=== PATIENT | female | born 1940 | race Caucasian/White ===

== ENCOUNTER → 2020-06-09 11:53 | Outpatient (CLI) | payer MEDICARE, SELFPAY ==
--- NOTE | 2020-06-09 11:56 | US_ITS ---
HISTORY: Hypertension, hydronephrosis. 56 images. No comparison imaging. Findings: The right kidney measures 10.4 x 3.3 x 3.6 cm. Right renal cortex is of millimeters thick. Right renal cortex is homo-genius in echotexture and hypoechoic relative to the adjacent liver. Color Doppler imaging demonstrates flow to the right renal parenchyma. No hydronephrosis Exophytic to the right kidney is an anechoic structure measuring 17 x 16 x 8 mm. No flow is demonstrated within this structure. Within the right superior pole parapelvic region there is a 14 x 13 x 15 mm hypoechoic structure with well-defined margins and increased through transmission and no flow on color Doppler imaging. These structures likely represent benign cysts. Within the right kidney there are 2 echogenic structures one measuring 5 mm, the other measuring 6 mm. These are consistent with nonobstructing nephroliths. The left kidney measures 10.5 x 3.6 x 3.8 cm. There is no hydronephrosis. 3 mm echogenic shadowing focus within the right kidney is likely a nonobstructing nephrolith Color Doppler imaging demonstrates flow to left renal parenchyma. Left renal cortex is 7 mm thick. The bladder is decompressed. US/Kidney and Bladder IMPRESSION: Mild symmetric renal cortical thinning. Bilateral nonobstructing stones. No hydronephrosis. at 2112 Reported and signed by: Maxime Ackerman MD Electronically Signed: Maxime Ackerman MD at 21:11 EDT Tel , Service support ,
== END ==
PROVIDERS: PCP Family Medicine; Referring Provider Urology; Visit Provider Urology
DX: N13.30 Unspecified hydronephrosis (principal); R33.9 Retention of urine, unspecified
CPT/HCPCS: 76770

== ENCOUNTER → 2020-07-14 09:53 | Outpatient (CLI) | payer MEDICARE, SELFPAY ==
--- NOTE | 2020-07-14 09:55 | US_ITS ---
STUDY: RENAL ULTRASOUND - COMPLETE REASON FOR EXAM: Female, 79 years old. HYDRONEPHROSIS TECHNIQUE: Ultrasound evaluation of the kidneys was performed with real-time and static medina-scale imaging. COMPARISON: Comparison is made with prior study dated 06/09/2020. FINDINGS: RIGHT KIDNEY: Normal location of the right kidney, which is normal in size. The right kidney measures 10.3 cm x 4.3 cm x 4 cm. There is diffuse thinning of the renal cortex. The renal cortex measures 0.9 cm. There is no right renal mass or cyst. There are 2 tiny nonobstructive right intrarenal calculi. 2 cysts are seen in the right kidney. The larger measures 1.9 cm x 1.3 cm x 0.9 cm. DISTAL RIGHT URETER: There is non-visualization of the distal right ureter. There is no demonstrated right ureterovesical junction calculus. There is a visualized right ureteral jet. LEFT KIDNEY: Normal location of the left kidney, which is normal in size. The left kidney measures 10.3 cm x 3.3 cm x 3.2 cm. There is diffuse thinning of the renal cortex. The renal cortex measures 0.7 cm. There is no left renal mass or cyst. Stable to tiny nonobstructive intrarenal calculi. There is no left hydronephrosis. DISTAL LEFT URETER: There is non-visualization of the distal left ureter. There is no demonstrated left ureterovesical junction calculus. There is a visualized left ureteral jet. BLADDER: The distended urinary bladder has a volume of 20 ml. There is a normal wall thickness of the distended urinary bladder. There is no demonstrated mass within the urinary bladder. There are no demonstrated bladder calculi. US/Kidney and Bladder IMPRESSION: Stable small bilateral intrarenal calculi and renal cysts. No evidence of hydronephrosis. Electronically Signed: Sergo Perez MD at 15:37 EDT , Service support ,
== END ==
PROVIDERS: PCP Family Medicine; Referring Provider Urology; Visit Provider Urology
DX: N13.30 Unspecified hydronephrosis (principal)
CPT/HCPCS: 76770

== ENCOUNTER → 2020-09-24 10:49 | Outpatient (CLI) | payer MEDICARE, SELFPAY ==
[2020-09-20 13:00] VITALS: BMI 25.1
--- NOTE | 2020-09-24 10:49 | MRI_ITS ---
STUDY: MR PELVIS WITH T WITHOUT CONTRAST REASON FOR EXAM: Female, 79 years old. vaginal cancer, eval extent of disease TECHNIQUE: Standardized fat and water weighted pulse sequences were obtained in all 3 orthogonal planes, pre-and post contrast administration. IV dotarem 12ml was administered for the contrast portion of the examination. Limited by motion artifact. COMPARISON: None. FINDINGS: Normal urinary bladder. Normal visualized small intestine. No colon wall thickening. The cecum is positioned in the pelvis. Cecum is mildly fluid distended but no cecal wall thickening There is no pelvic fluid. There is no pelvic mass lesion or lymphadenopathy. Normal visualized pelvic arteries. No bone marrow edema. Normal abdominal wall. No pelvic free fluid. The uterus measures 1.6 x 2.4 x 3.4 cm (atrophic). T1 hypointense mass (with abnormal enhancement) in the vaginal vault is identified with extension into the parametrium (left side). There is also T1 hypointense signal intensity which extends to the left levator sling (image 16 series 9, image 24 series 6). There does NOT appear to be extension into the urinary bladder. There is very little if any fat plane between the rectum and vaginal vault. Hypointense T1 lobular thickening of the left lateral rectal wall (image 28-29 series 6) appears to be contiguous with the vaginal mass. No pelvic adenopathy identified. MRI/Pelvis W/WO Contrast IMPRESSION: 1. Vaginal vault mass extending into the parametrium and left levator sling as well as the left side of the rectum (FIGO T4). No pelvic adenopathy identified. Electronically Signed: Tu Gutierrez MD ([place]) at 18:27 EDT , Service support ,
== END ==
PROVIDERS: PCP Family Medicine; Referring Provider Student in an Organized Health Care Education/Training Program; Visit Provider Student in an Organized Health Care Education/Training Program
DX: C52 Malignant neoplasm of vagina (principal)
CPT/HCPCS: 72197; 77014; 77290; 82565; A9575; Q9967; A4216

== ENCOUNTER 2020-10-06 05:44 | Day surgery (SDC) | payer MEDICARE, SELFPAY ==
[2020-10-01 09:17] VITALS: BMI 26.1
[2020-10-04 10:14] VITALS: BMI 26.4
[2020-10-06] VITALS (8 sets, daily range): BP systolic 124–172; BP diastolic 61–80; PULSE 61–69; RESP 16–18; TEMP 36–36.7; O2SAT 97–99; BMI 27.1
[2020-10-06] MEDS: Lactated Ringers 1,000 ML 100 ML IV (06:15)
--- NOTE | 2020-10-06 07:14 | PCM.HP.BLA ---
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: No Is patient in pain?: No Allergies cefuroxime [From Ceftin] Allergy (Verified 10/01/20 09:21) Hives ibuprofen [From Motrin] Allergy (Verified 10/01/20 09:21) Hives morphine Allergy (Verified 10/01/20 09:21) Other Is last menstrual period known: No Post menopausal: Yes Patient : No PFSH Medical History Anemia Back pain CAD (coronary artery disease) Cervical cancer Coronary artery disease involving coronary bypass graft History of acute myocardial infarction HTN (hypertension) Malignant neoplasm of vagina Osteoarthritis Surgical History History of appendectomy History of back surgery History of bilateral inguinal herniorrhaphies History of cholecystectomy History of heart artery stent History of partial colectomy History of peripheral artery bypass History of reversal of ileostomy Family History Mother CAD (coronary artery disease) Mother Hypertension Brother Myocardial infarction Social History adopted: No household members: none housing: house number of children: 4 current occupational status: retired current occupation: RETIRED current occupational exposures/hazards: No Smoking Status: Former smoker Tobacco: How many years used: 57 how long ago did patient quit smokin YEARS substance use type: does not use HPI HPI HPI: LESLEY KAUFFMAN, is a 79 F who presents to the office today for port placement due to malignant neoplasm of the vagina. Patient also has significant cardiac history and is on aspirin and Plavix. Patient does have some discomfort in her vaginal area otherwise has no other complaints. ROS General General: Yes fatigue; No weight change Musc Musculoskeletal: Yes back problems; No joint pain Cardio Cardiovascular: No chest pain Resp Respiratory: Yes shortness of breath and No cough Exam Const General: cooperative, healthy appearing, comfortable and no acute distress Neck Neck: normal visual inspection and supple Chest Other: Palpation of bilateral upper chest normal Resp Effort & Inspection: normal respiratory effort Cardio Rate: regular rate GI Inspection: non-distended Palpation: soft and nontender Skin General: no rashes or lesions noted Neuro General: patient oriented x3 Psych Affect: normal affect COVID (Procedure Consent) Procedure Criteria Procedure Criteria: Yes Elective The surgeon/proceduralist and patient have discussed in detail the risk of exposure to and/or potential harm posed by the COVID-19 virus with having a surgery/procedure at this time versus the risk of delaying the surgery/procedure. It is not possible to know either the risk of delaying the surgery or procedure or chance of getting an infection with perfect accuracy, but a joint decision was made between the patient and the surgeon/proceduralist to proceed at this time with the scheduled surgery/procedure as indicated on the consent form. Assessment and Plan Assessment and Plan (1) Encounter for insertion of venous access port: Status: Acute (2) Malignant neoplasm of vagina: Status: Acute Plan - Dr. Enid Soni MD: I have discussed above with the patient- Port-a-Cath placement. Right possible left, looking at scheduling next Sunday or . Patient has been counseled as to the risks/benefits of the procedure. I have explained the risks of the surgery, including but not limited to: infection, bleeding, injury to any blood vessels/nerves, injury to lungs (such as pneumothorax or hemothorax and need for chest tube), not having any access, nonfunctioning of port due to thrombosis, infection of port, etc. the patient understands and agrees to proceed. I have answered all the patient's questions to the patient?s satisfaction and the patient has no further questions. Enid Soni M.D. Pager: [phone] [facility] [address] [place] [address], [address] [place] [address] Office: [phone] Coding Level of Care Code Off vis,new,level 3 Diagnoses Encounter for insertion of venous access port Z45.2 Malignant neoplasm of vagina C52 10/01/20 0935<Electronically signed by Enid Soni MD>Date [facility]
[2020-10-06] MEDS: Lidocaine 1% /Epi 1:100 (20ml) 20 ML Vial (07:48)
[2020-10-06] MEDS: Bupivacaine Mpf 0.5% 30 ML VIAL (07:49)
--- NOTE | 2020-10-06 08:01 | PCM.OPRPT ---
Report of Operation Date of Procedure: 10/06/20 Pre-Operative Diagnosis: Z 45.2, malignant neoplasm of vagina Post-Operative Diagnosis: Same Surgery/Procedure Performed:: 1. Placement of right IJ Port-A-Cath 2. Use of ultrasound 3. Use of fluoroscopy Surgeon: Enid Soni Type of Anesthesia: Local MAC Anesthesiologist: Emiliano Ochoa Special Medications: Clindamycin 900 mg IV x1 Estimated Blood Loss (mL): < 10 cc Fluids Replaced: Per anesthesia Description of Procedure: After informed consent was given, the patient was brought to the operating room and placed in the supine position. Appropriate time out protocol was followed. Patient was then given IV conscious sedation for anesthesia. The patient's right upper chest and neck were then prepped with a surgical skin preparation and sterile surgical drapes were placed. After proper landmarks were ascertained, the skin at the upper right chest area was then infiltrated with 1:1 mixture of 1% lidocaine with epinephrine and 0.5% marcaine. A needle trocar was then inserted into the right internal jugular vein with ultrasound guidance-multiple vessels were viewed with u/s and the right IJ was chosen-- and there was good aspiration of venous blood. A wire was then threaded into the needle trocar and this was visualized under fluoroscopy to ensure that the wire was in the superior vena cava. Once this was done, then the needle trocar was removed. A small skin gracie was made with an 11 blade knife at the wire entrance site. The dilator with the introducer sheath attached was then placed over the wire into the right internal jugular vein via the Seldinger technique and this was visualized under fluoroscopy. The dilator and sheath were in proper position as visualized by fluoroscopy. A subcutaneous pocket was then created caudad to the catheter insertion site. A transverse skin incision was made after the skin and subcutaneous tissues were infiltrated with local anesthetic. Blunt dissection was then used to create a space large enough for placement of the subcutaneous port. The catheter was then tunneled into the subcutaneous pocket. The wire and dilator were then removed. The catheter was then threaded into the introducer sheath and was positioned with its tip at the junction of the superior vena cava and the right atrium as visualized under fluoroscopy. The excess catheter was transected. The catheter was then attached to the subcutaneous port using manufacturers guidelines. The catheter was flushed with a heparin saline mixture prior to placement. Hemostasis was carefully controlled with electrocautery. The port was sutured to the subcutaneous fascia using 2-0 Vicryl suture at two sites. The port was then placed in the subcutaneous pocket. The incision were reapproximated with interrupted subdermal 3-0 vicryl sutures. The skin was reapproximated with 3-0 nylon suture in a interrupted fashion. Steristrips were used for reinforcement of the skin closure at IJ insertion site and a sterile opsite dressings were applied. The patient tolerated the procedure well. Implants Used: Bard PowerPort isp M.R.I. 6Fr Lot [id number] [id number] Grafts/Implants Used: [employer] PowerPort isp M.R.I. 6Fr Lot [id number] [id number] Complications none
--- NOTE | 2020-10-06 08:04 | EX.PCM.DISCH ---
Discharge Instructions Procedure Port-A-Cath Diet Discharge Diet: Light diet - advance as tolerated Activity May shower in (days): 5 (Keep port site clean and dry x5 days. Neck incision okay to get wet after 1 day. Okay to lower shower and upper sponge bath. OR okay to taper off port site with a Ziploc bag to shower) Lifting Restrictions: No lifting > 15 pounds for 3 days with the arm on the side of the port Dressing / Incision Call your doctor if your incision/area has: Continuous Slow Oozing, Sudden Increased Bleeding, Increased Pain/ Swelling, Increased Redness, Foul Smelling Discharge and Swelling at the incision site Call your doctor if you observe: Fever of 101 or Higher Change Dressing in: 2 days Follow Up Care Please Follow Up With: Enid Soni MD When: In 10 days for permanent suture removal?call office for appointment Test Results: Test results from this visit will be discussed in further detail at your follow-up appointment, if applicable. Discharge Plan Admission Attending Provider: Enid Soni Primary Care Provider: Brenna Gabriel Discharge Orders/Prescriptions Prescriptions: Continued aspirin 81 mg tablet,delayed release (DR/EC) 81 mg PO DAILY RF: 0 clopidogrel [Plavix] 75 mg tablet 75 mg PO DAILY RF: 0 docusate sodium [Colace] 100 mg capsule 100 mg PO DAILY RF: 0 furosemide [Lasix] 20 mg tablet 20 mg PO Q OTHER DAY RF: 0 gabapentin 800 mg tablet 800 mg PO BID RF: 0 Atrovent HFA 17 mcg/actuation HFA aerosol inhaler 2 puff inhalation Q8H RF: 0 ipratropium-albuterol 0.5 mg-3 mg(2.5 mg base)/3 mL solution for nebulization 3 ml inhalation Q6H PRN (Reason: breathing) RF: 0 isosorbide mononitrate 30 mg tablet extended release 24 hr 30 mg PO DAILY RF: 0 Linzess 72 mcg capsule 72 mcg PO DAILY RF: 0 lisinopril 2.5 mg tablet 2.5 mg PO DAILY RF: 0 magnesium 30 mg tablet 30 mg PO DAILY RF: 0 metaxalone [Skelaxin] 800 mg tablet 800 mg PO TID RF: 0 metoprolol tartrate [Lopressor] 50 mg tablet 50 mg PO BID RF: 0 polyethylene glycol 3350 [Miralax] 17 gram/dose powder 17 g PO DAILY RF: 0 oxycodone-acetaminophen 5-325 mg tablet 1 tab PO TID PRN (Reason: Pain) RF: 0 pantoprazole [Protonix] [address] for susp in packet 40 mg PO DAILY RF: 0 simvastatin [Zocor] 40 mg tablet 40 mg PO QHS RF: 0 multivit,tx w/iron (hematinic) 27-0.8 mg tablet 1 tab PO DAILY RF: 0 diphenhydramine HCl [Unisom SleepGels] 50 mg capsule 50 mg PO QHS RF: 0 prochlorperazine maleate 10 mg tablet 10 mg PO Q6H PRN (Reason: nausea and vomiting) Qty: 30 RF: 2 ondansetron 8 mg tablet,disintegrating 8 mg PO Q8H PRN (Reason: nausea and vomiting) Qty: 30 RF: 2 lidocaine-prilocaine 2.5-2.5 % cream 1 applic topical ONCE PRN (Reason: Port access) 30 Days Qty: 30 RF: 2 Referrals / Follow Up: Brenna Gabriel DO [Primary Care Provider] - Disposition Disposition (needs filled in before D/C Order can be placed): Home, Self Care
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
== END 2020-10-06 09:25 | disposition home or self-care (01) ==
LOC: SDC 05:45 → AC 05:46
PROVIDERS: PCP Family Medicine; Referring Provider Surgery; Visit Provider Surgery
PROC: (CPT 36561; principal; 2020-10-06 07:15)
DX: C52 Malignant neoplasm of vagina (principal); Z45.2 Encounter for adjustment and management of vascular access device; D64.9 Anemia, unspecified; I25.10 Atherosclerotic heart disease of native coronary artery without angina pectoris; I11.0 Hypertensive heart disease with heart failure; M19.90 Unspecified osteoarthritis, unspecified site; Z87.891 Personal history of nicotine dependence; Z79.02 Long term (current) use of antithrombotics/antiplatelets; Z79.899 Other long term (current) drug therapy
CPT/HCPCS: 36561; 71045; 77001; 77386; 87426; C9803; J7120

== ENCOUNTER → 2020-11-03 08:08 | Outpatient (CLI) | payer MEDICARE, SELFPAY ==
--- NOTE | 2020-11-03 08:09 | MRI_ITS ---
STUDY: MR PELVIS WITH T WITHOUT CONTRAST REASON FOR EXAM: 79-year-old female with right vaginalcancer, evaluate extent of disease for brachytherapy planning. TECHNIQUE: Standardized fat and water weighted pulse sequences were obtained in all 3 orthogonal planes, pre-and post contrast administration. 13 ml of Dotarem was administered for the contrast portion of the examination. COMPARISON: 09/24/2020. FINDINGS: The uterus is atrophic and is visualized deviated to the left lateral pelvis, fluid is visualized within the endometrial cavity, the endometrial stripe measures 0.4 cm of the level of the fundus and 0.4 cm in the lower uterine segment, no evidence of endometrial masses or cysts visualized, seen on sagittal series 3 image 10. Multiple simple cysts visualized within the cervix consistent with nabothian cysts seen on sagittal series 3 image 12. In comparison to the prior study coronal series 9 image 16 the soft tissue density visualized in the pelvis inferior to the urinary bladder is again visualized on the current study coronal series 32 image 14 and is seen demonstrating heterogeneous enhancement after contrast administration. A clear demarcation plane of adipose tissue is visualized between 8 and the urinary bladder is visualized on coronal series 8 images 12 to 19. The rectum and rectosigmoid are visualized best on axial series 4 and are seen from image 27 inferiorly to image 3 superiorly, irregular thickening and enhancement in the lateral wall of the rectum is visualized on series 5 image 24 with subtle ill-defined demarcation between the left anterolateral rectal wall and the vaginal soft tissues however this does not demonstrate progression in comparison to the prior study. Otherwise the rectum demonstrates unremarkable contours and unremarkable signal intensity within the adnexa muscularis propria, submucosal and mucosal is no evidence of masses. Mild stranding of the mesorectal fascia but no evidence of lymph nodes or masses visualized. Mild trabeculation visualized in the wall of the urinary bladder with mild wall thickening but no evidence of a bladder wall mass is seen. No evidence of masses within the urinary bladder. There is no pelvic fluid. There is no pelvic lymphadenopathy. Normal osseous structures. Normal abdominal wall. MRI/Pelvis W/WO Contrast IMPRESSION: Thickening of the wall of the rectum and enhancement visualized most prominent along the left lateral wall at the level of the vaginal soft tissue changes, this demonstrates no significant progression in comparison to the prior study. No evidence of adjacent lymphadenopathy is seen. No evidence of new pelvic masses is seen. Electronically Signed: Fred Silveira MD at 12:55 EDT Tel , Service support ,
[2020-11-03] MEDS: 0.9% Saline Lock 10 ML Syringe IV (09:30)
== END ==
PROVIDERS: PCP Family Medicine; Referring Provider Student in an Organized Health Care Education/Training Program; Visit Provider Student in an Organized Health Care Education/Training Program
DX: C52 Malignant neoplasm of vagina (principal)
CPT/HCPCS: 72197; A9575; A4216

== ENCOUNTER 2020-11-10 15:32 | Emergency (ER) | payer MEDICARE, SELFPAY ==
[2020-11-10 15:32] VITALS: BP 196/102; PULSE 88; RESP 17; TEMP 36.1; O2SAT 97; BMI 27.0
--- NOTE | 2020-11-10 16:37 | CT_ITS ---
EXAMINATION : Head CT w/out contrast HISTORY : headache COMPARISON : None. TECHNIQUE : Multiple contiguous axial images were obtained from the skull base to the vertex without intravenous contrast. A radiation dose optimization technique was used for this scan. FINDINGS : There is no evidence for acute intracranial hemorrhage, mass effect, or midline shift. There is no extra-axial fluid collection. There are periventricular white matter changes consistent with chronic microvascular ischemic disease. There is sulcal widening and ventricular enlargement consistent with cerebral atrophy. There is normal medina-white differentiation, without CT evidence of acute ischemia or infarct. The skull base and calvarium are unremarkable. The orbits are unremarkable. The paranasal sinuses are clear. The mastoid air cells are well-aerated. The soft tissues are unremarkable. CT/Brain/Head without Contrast IMPRESSION: No acute intracranial abnormality. Chronic involutional and ischemic changes of the brain. Electronically Signed: Jaiden Garcia MD at 18:07 EDT Tel , Service support ,
--- NOTE | 2020-11-10 16:39 | EDS_ITS ---
HPI History of Present Illness Chief Complaint: Hypertension Detail of Chief Complaint: Elevated blood pressure today Informant: patient and family Narrative Narrative: Patient presents to the emergency department at the request of her radiation oncologist Dr. Wick whom she was seen in the office today. Patient was noted to have elevated blood pressure of 224/119. 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 Patient's blood pressure has been trending up lately and her primary care physician was contacted yesterday who recommended that she increase her metoprolol to 50 mg twice a day from once a day however she did not take the extra dose today. Patient does complain of a headache that she is developed today that came on somewhat suddenly. She denies nausea or vomiting or recent illness otherwise. She denies any chest pain or shortness of breath. Patient also takes lisinopril. Prior similar symptoms: Yes PFSH [facility] Medical History (Updated 11/10/20 @ 19:[address] Elvin Hernandez, DO) Anemia Back pain Cancer Cardiology follow-up encounter Cervical cancer Chronic constipation Coronary artery disease involving coronary bypass graft Diarrhea due to drug Difficulty chewing Easy bruising Encounter for chemotherapy management Encounter for chemotherapy management Excessive bleeding Former smoker Gastric reflux High cholesterol History of acute myocardial infarction History of Clostridium difficile infection History of echocardiogram History of heart attack History of stress test History of ulceration HTN (hypertension) Malignant neoplasm of vagina Osteoarthritis Pancytopenia due to antineoplastic chemotherapy Shortness of breath on exertion Uses wheelchair Vocal cord paralysis Wears dentures Wears glasses Wears hearing aid Home Medications aspirin 81 mg tablet,delayed release 81 mg PO DAILY 09/20/20 [History Last Taken 10/05/20 08:00] clopidogrel 75 mg tablet 75 mg PO DAILY 09/20/20 [History Last Taken 10/05/20 08:00] diphenhydramine HCl 50 mg capsule 50 mg PO QHS 09/20/20 [History Last Taken 10/05/20 08:00] docusate sodium 100 mg capsule 100 mg PO DAILY 09/20/20 [History Last Taken 10/05/20 08:00] furosemide 20 mg tablet 20 mg PO Q OTHER DAY 09/20/20 [History Last Taken 10/05/20 08:00] gabapentin 800 mg tablet 800 mg PO BID 09/20/20 [History Last Taken 10/05/20 08:00] ipratropium 0.5 mg-albuterol 3 mg (2.5 mg base)/3 mL nebulization soln 3 ml INHALATION Q6H PRN 09/20/20 [History Last Taken 10/05/20 08:00] ipratropium bromide 17 mcg/actuation HFA aerosol inhaler 2 puff INHALATION Q8H 09/20/20 [History Last Taken 10/05/20 08:00] isosorbide mononitrate 30 mg tablet,extended release 24 hr 30 mg PO DAILY 09/20/20 [History Last Taken 10/06/20 04:30] linaclotide 72 mcg capsule 72 mcg PO DAILY 09/20/20 [History Last Taken 10/05/20 08:00] lisinopril 2.5 mg tablet 2.5 mg PO DAILY 09/20/20 [History Last Taken 10/06/20 04:30] magnesium 30 mg tablet 30 mg PO DAILY 09/20/20 [History Last Taken 10/05/20 08:00] metaxalone 800 mg tablet 800 mg PO TID 09/20/20 [History Last Taken 10/05/20 08:00] metoprolol tartrate 50 mg tablet 50 mg PO BID 09/20/20 [History Last Taken 10/06/20 04:30] multivit,tx w/iron (hematinic) 27 mg-0.8 mg tablet 1 tab PO DAILY 09/20/20 [History Last Taken 10/05/20 08:00] oxycodone-acetaminophen 5 mg-325 mg tablet 1 tab PO TID PRN 09/20/20 [History Last Taken 10/05/20 08:00] pantoprazole 40 mg granules delayed-release for susp in packet 40 mg PO DAILY 09/20/20 [History Last Taken 10/05/20 08:00] polyethylene glycol 3350 17 gram/dose oral powder 17 g PO DAILY 09/20/20 [History Last Taken 10/05/20 08:00] simvastatin 40 mg tablet 40 mg PO QHS 09/20/20 [History Last Taken 10/05/20 08:00] lidocaine-prilocaine 2.5 %-2.5 % topical cream 1 applic TOPICAL ONCE PRN 30 Days #30 g 10/04/20 [Rx Last Taken 10/05/20 08:00] ondansetron 8 mg disintegrating tablet 8 mg PO Q8H PRN #30 tab 10/04/20 [Rx Last Taken 10/05/20 08:00] prochlorperazine maleate 10 mg tablet 10 mg PO Q6H PRN #30 tab 10/04/20 [Rx Last Taken 10/05/20 08:00] Allergy/AdvReac Type Severity Reaction Status Date / Time cefuroxime [From Ceftin] Allergy Hives Verified 11/10/20 14:21 ibuprofen [From Motrin] Allergy Hives Verified 11/10/20 14:21 morphine Allergy Other Verified 11/10/20 14:21 Family History Mother CAD (coronary artery disease) Mother Hypertension Brother Myocardial infarction Surgical History History of appendectomy History of back surgery History of bilateral inguinal herniorrhaphies History of cholecystectomy History of heart artery stent History of partial colectomy History of peripheral artery bypass History of reversal of ileostomy Social History adopted: No household members: none housing: house number of children: 4 current occupational status: retired current occupation: RETIRED current occupational exposures/hazards: No Smoking Status: Former smoker Tobacco: How many years used: 57 how long ago did patient quit smokin YEARS substance use type: does not use ROS ROS ED Constitutional Constitutional ED: Reports systems reviewed and no addt'l complaints, except as documented; Denies body ache(s), change in weight or chills Eyes Eyes: Denies acute decrease in peripheral vision, change in vision, double vision or loss of vision ENT ENT ED: Reports none; Denies ear pain, lip swelling, loss taste/smell, neck pain, otalgia or sore throat Cardiovascular Cardiovascular: Reports none; Denies abdominal pain, chest pain with activity, leg edema, lightheadedness, palpitations, rapid heart rate or syncope Respiratory/Chest Respiratory/Chest: Reports none; Denies change in mental status, dry cough, dyspnea, hemoptysis, shortness of breath at rest or shortness of breath with exertion Gastrointestinal Gastrointestinal: Reports none; Denies abdominal pain, change in stool character, diarrhea, hematemesis, hematochezia, melena, rectal bleeding or vomiting Genitourinary Genitourinary ED: Reports none; Denies abdominal discomfort, anuria, dysuria, genital pain or polyuria Musculoskeletal Musculoskeletal: Reports none; Denies arthralgias, back pain, difficulty walking, extremity pain, muscle weakness or myalgias Integumentary Reports none; Denies abscess or rash Neurologic Neurologic: Reports none and headache(s); Denies abnormal gait, confusion, focal weakness, frequent falls, loss of vision, numbness, paresthesias, radicular pain, vertigo or weakness Psychiatric Psychiatric: Reports systems reviewed and no addt'l complaints, except as documented and none; Denies behavioral changes, confusion, difficulty concentrating, hallucinations, suicidal ideation, tactile hallucinations or visual hallucinations Endocrine Endocrinology: Denies none, cold intolerance, excessive sweating, fatigue or heat intolerance Hematologic/Lymphatic Hematologic/Lymphatic: Reports none; Denies anemia, easy bleeding or easy bruising Allergic/Immunologic Allergic/Immunologic ED: Denies as per HPI, none, lip swelling, mouth swelling, throat swelling, tongue swelling or hives EXAM Physical Exam Const Vital Signs: 11/10/20 15:32 11/10/20 16:34 11/10/20 17:29 Temperature 97 F L Temperature Source Temporal Pulse Rate 88 Respiratory Rate 17 Respiratory Effort Normal Non-Labored Blood Pressure 196/102 H 171/89 H Blood Pressure Mean 133 116 Pulse Ox 97 Oxygen Delivery Method Room Air 11/10/20 19:00 Temperature Temperature Source Pulse Rate 87 Respiratory Rate 17 Respiratory Effort Blood Pressure 198/97 H Blood Pressure Mean 130 Pulse Ox 98 Oxygen Delivery Method Room Air Positive well nourished and well developed General Appearance ED: well developed and NAD HEENT Reports TM's clear and moist mucous membranes normocephalic and atraumatic; Negative for trauma or tenderness Tympanic Membrane ED: Yes TM's clear Eyes PERRL and EOMs intact bilaterally General Eye ED: Negative for pale conjunctiva or scleral icterus Neck no lymphadenopathy, supple and no JVD General: Negative for tenderness Chest Wall inspection of chest normal and palpation of chest normal Chest: Negative for tenderness Resp normal respiratory effort and clear to auscultation bilaterally Effort and Inspection: Negative for respiratory distress or pain with movement Auscultation: Negative for rhonchi, wheezes or diminished lung sounds Cardio regular rate, regular rhythm, S1 normal heart sound, S2 normal heart sound and no murmurs Peripheral Pulses: pulses 2+ throughout GI normal to inspection, nondistended, normoactive bowel sounds, soft to palpation, non-tender, non-distended and no masses Back/Spine no CVA tenderness and no thoracic nor lumbar tenderness Extremity normal to inspection General Extremety ED: Negative for edema General Extremity: Negative for edema Neuro oriented x3, CN's II-XII intact bilaterally, no sensory deficits noted and gait normal Sensorium / Orientation: awake, alert, oriented to person, oriented to place and oriented to time Motor Exam: strength 5/5 throughout and strength abnormal Psych mental status grossly normal Skin no rashes or lesions noted and no wounds MDM MDM MDM Narrative Medical decision making narrative: Patient placed on a cardiac rn on arrival. Patient was given metoprolol 50 mg p.o. She was observed on monitors and she continues to have elevated blood pressure of 190s over 90s diastolic. Patient has a just a minimal headache and she states that she used to frequently get migraines. She does not anything for headache. Patient would like to go home and just relax. At this point I do not feel there is anything emergent regarding her blood pressure. She is to continue with her new blood pressure medicine regimen and keep track of her blood pressures at home. She will follow-up with her primary care physician in 3 to 5 days. Lab Data Attestation: I reviewed the patient's lab results. Labs: Laboratory Results - last 24 hr 11/10/20 11/10/20 11/10/20 17:10 17:10 17:10 WBC 2.5 L RBC 3.59 L Hgb 9.9 L Hct 29.7 L MCV 82.7 MCH 27.6 MCHC 33.3 RDW Std Deviation 56.9 H RDW Coeff of Howard 19.3 H Plt Count 41 L* MPV 10.7 Immature Gran % (Auto) 0.800 Neut % (Auto) 62.5 Lymph % (Auto) 23.3 [place] % (Auto) 12.6 H Eos % (Auto) 0.4 Baso % (Auto) 0.4 Absolute Neuts (auto) 1.6 L Absolute Lymphs (auto) 0.59 L Nucleated RBC % 0 Differential Comment SCANNED Diff Path Review May foll Platelet Estimate MKD DEC Anisocytosis 3+ Ovalocytes RARE Sodium 135 L Potassium 4.1 Chloride 102 Carbon Dioxide 25.0 Anion Gap 8 BUN 11 Creatinine 0.61 Estim Creat Clear Calc 32.73 Est GFR (MDRD) Af Amer 121 Est GFR (MDRD) Non-Af 100 BUN/Creatinine Ratio 18.0 Glucose 90 Calcium 8.6 Troponin I High Sens 24 Urine Color Straw Urine Clarity Clear Urine pH 7.0 Ur Specific [place] 1.005 Urine Protein Negative Urine Glucose (UA) Normal Urine Ketones Negative Urine Occult Blood 50 H Urine Nitrite Negative Urine Bilirubin Negative Urine Urobilinogen Normal Ur Leukocyte Esterase 100 H Urine RBC 0 SEEN Urine WBC 0 SEEN Ur Squamous Epith Cells 0 SEEN Urine Bacteria 0 SEEN Urine Mucus 0 SEEN Radiography Diagnostic Testing: Radiology Impression Brain CT 11/10/20 16:37 IMPRESSION: No acute intracranial abnormality. Chronic involutional and ischemic changes of the brain. Electronically Signed: Jaiden Garcia MD at 18:07 EDT Tel , Service support , Chest X-Ray 11/10/20 17:20 IMPRESSION: No acute radiographic abnormalities. 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 Discharge Plan Triage Chief Complaint: Hypertension ED Provider: Elvin Hernandez Dx/Rx/DC Orders Clinical Impression: Hypertension Instructions: ED High Blood Pressure Hypertension Prescriptions: No Action aspirin 81 mg tablet,delayed release (DR/EC) 81 mg PO DAILY RF: 0 clopidogrel [Plavix] 75 mg tablet 75 mg PO DAILY RF: 0 docusate sodium [Colace] 100 mg capsule 100 mg PO DAILY RF: 0 furosemide [Lasix] 20 mg tablet 20 mg PO Q OTHER DAY RF: 0 gabapentin 800 mg tablet 800 mg PO BID RF: 0 Atrovent HFA 17 mcg/actuation HFA aerosol inhaler 2 puff inhalation Q8H RF: 0 ipratropium-albuterol 0.5 mg-3 mg(2.5 mg base)/3 mL solution for nebulization 3 ml inhalation Q6H PRN (Reason: breathing) RF: 0 isosorbide mononitrate 30 mg tablet extended release 24 hr 30 mg PO DAILY RF: 0 Linzess 72 mcg capsule 72 mcg PO DAILY RF: 0 lisinopril 2.5 mg tablet 2.5 mg PO DAILY RF: 0 magnesium 30 mg tablet 30 mg PO DAILY RF: 0 metaxalone [Skelaxin] 800 mg tablet 800 mg PO TID RF: 0 metoprolol tartrate [Lopressor] 50 mg tablet 50 mg PO BID RF: 0 polyethylene glycol 3350 [Miralax] 17 gram/dose powder 17 g PO DAILY RF: 0 oxycodone-acetaminophen 5-325 mg tablet 1 tab PO TID PRN (Reason: Pain) RF: 0 pantoprazole [Protonix] [address] for susp in packet 40 mg PO DAILY RF: 0 simvastatin [Zocor] 40 mg tablet 40 mg PO QHS RF: 0 multivit,tx w/iron (hematinic) 27-0.8 mg tablet 1 tab PO DAILY RF: 0 diphenhydramine HCl [Unisom SleepGels] 50 mg capsule 50 mg PO QHS RF: 0 prochlorperazine maleate 10 mg tablet 10 mg PO Q6H PRN (Reason: nausea and vomiting) Qty: 30 RF: 2 ondansetron 8 mg tablet,disintegrating 8 mg PO Q8H PRN (Reason: nausea and vomiting) Qty: 30 RF: 2 lidocaine-prilocaine 2.5-2.5 % cream 1 applic topical ONCE PRN (Reason: Port access) 30 Days Qty: 30 RF: 2 Primary Care Provider: Brenna Gabriel Referrals: Brenna Gabriel DO [Primary Care Provider] - 3-5 Days Disposition Disposition: Home, Self Care
[2020-11-10] MEDS: 0.9% Normal Saline 1,000 ML 15 ML IV (17:09)
[2020-11-10 17:18] LABS: Bacteria 0 SEEN /hpf (None Seen); Mucous, Urine 0 SEEN /hpf (<or=2+); Red Blood Cells-Urine 0 SEEN /hpf (0-5); Squamous Epithelial Cells - UA 0 SEEN /hpf (5-10); White Blood Cells 0 SEEN /hpf (0-5)
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
--- NOTE | 2020-11-10 17:21 | ED.RN ---
THIS RN [facility]
[2020-11-10 17:24] LABS: Absolute Lymphocyte Count 0.59 X10^3/uL (0.83-4.51); Absolute Neutrophil Count 1.6 X10^3/uL (2.0-7.7); Basophil# 0.01 X10^3/uL; Basophil% 0.4 % (0-1); Eosinophil# 0.01 X10^3/uL; Eosinophils% 0.4 % (0-5); Hematocrit 29.7 % (37-47); Hemoglobin 9.9 g/dL (12.0-15.0); Lymphocyte # 0.59 X10^3/ul (0.83-4.51); Lymphocyte % 23.3 % (19-41); Mean Corp Hgb Conc 33.3 g/dL (32-36); Mean Corpuscular Hgb 27.6 pg (27.0-32.0); Mean Corpuscular Volume 82.7 fL (81-99); Mean Platelet Vol. 10.7 fl (6.2-12.0); Monocyte# 0.32 X10^3/uL; Monocyte% 12.6 % (0-10); NRBC Flagged by Analyzer 0 % (0-5); Neutrophil # 1.58 X10^3/uL (2.7-7.7); Neutrophil % 62.5 % (47-70); POSITIVE COUNT YES; POSITIVE DIFFERENTIAL YES; RBC Distribution Width CV 19.3 % (11.6-14.6); RBC Distribution Width SD 56.9 fl (35.1-43.9); Red Blood Count 3.59 M/mm3 (4.2-5.4); White Blood Count 2.5 K/mm3 (4.4-11.0)
[2020-11-10 17:29] VITALS: BP 171/89
[2020-11-10 17:41] LABS: Color, Urine Straw (Yellow); Glucose, Dipstick Normal (Normal); Ketone-Dipstick Negative (Negative); Leukocyte Esterase-Dipstick 100 /ul (Negative); Nitrite-Dipstick Negative (Negative); Occult Blood-Urine 50 /ul (Negative); Protein-Dipstick Negative (Negative); Specific Gravity, Urine 1.005 (1.002-1.030); Urine Bilirubin Dipstick Negative (Negative); Urine Clarity Clear (Clear); Urine Urobilinogen Normal (Normal)
[2020-11-10 17:49] LABS: Differential Indicated SCAN CRITERIA MET; Platelet Count 41 K/mm3 (150-450)
[2020-11-10 17:53] LABS: Anion Gap 8 (5-15); BUN 11 mg/dL (7-18); Calcium,Total 8.6 mg/dL (8.5-10.1); Chloride 102 mmol/L (98-107); Creatinine, Serum 0.61 mg/dL (0.55-1.02); EST Glomerular Filtration Rate 100 mL/min (>60); Est Glom Filt Rate - Afr Amer 121 mL/min (>60); Estimated Creatinine Clearance 32.73 ml/min; Glucose 90 mg/dL (74-106); Potassium 4.1 mmol/L (3.5-5.1); Sodium Level 135 mmol/L (136-145); Troponin-I HS 24 pg/mL (3.0-54.0)
[2020-11-10] MEDS: Metoprolol(XL)Succ 50 MG Tablet PO (18:10)
[2020-11-10 18:26] LABS: Differential Comment SCANNED
[2020-11-10 18:27] LABS: Platelet Estimate MKD DEC (ADEQ)
[2020-11-10 18:28] LABS: Anisocytosis 3+; Ovalocyte RARE
[2020-11-10 19:00] VITALS: BP 198/97; PULSE 87; RESP 17; O2SAT 98
--- NOTE | 2020-11-10 19:12 | EKG12_ITS ---
Test Reason : HYPERTENSION Blood Pressure : / mmHG Vent. Rate : 085 BPM Atrial Rate : 085 BPM P-R Int : 200 ms QRS Dur : 064 ms QT Int : 370 ms P-R-T Axes : 069 035 036 degrees QTc Int : 440 ms Normal sinus rhythm Septal infarct , age undetermined Abnormal ECG Confirmed by JAY ALEXANDER, LUCAS ([id number]), development editor BAILEE CASAS ([id number]) on 11/15/2020 12:57:40 PM Referred By: EVER Confirmed By:LUCAS THOMPSON MD
[2020-11-11 16:57] LABS: Pathologist Review Reviewed
== END 2020-11-10 19:31 | disposition home or self-care (01) ==
PROVIDERS: Emergency Provider Emergency Medicine; PCP Family Medicine
DX: I10 Essential (primary) hypertension (principal); C52 Malignant neoplasm of vagina; I25.10 Atherosclerotic heart disease of native coronary artery without angina pectoris; Z95.1 Presence of aortocoronary bypass graft; K21.9 Gastro-esophageal reflux disease without esophagitis; E78.00 Pure hypercholesterolemia, unspecified; M19.90 Unspecified osteoarthritis, unspecified site; Z79.899 Other long term (current) drug therapy; Z87.891 Personal history of nicotine dependence
CPT/HCPCS: 70450; 71045; 77386; 80048; 81001; 84484; 85025; 93005; 99283; J7030; A4216

== ENCOUNTER → 2020-11-12 12:12 | Outpatient (CLI) | payer MEDICARE, SELFPAY | PROVIDERS: PCP Family Medicine | DX: U07.1 COVID-19 (principal) | CPT/HCPCS: 87635; C9803; U0005; U0003 ==